=== PATIENT | male | born 1980 | race American Indian/Alaskan Native ===

== ENCOUNTER 2017-03-18 08:45 | Emergency (ER) | payer MEDICAID ==
[2017-03-18 08:55] VITALS: BP 118/79; PULSE 60; RESP 16; TEMP 98.2; O2SAT 100
[2017-03-18 08:56] VITALS: BMI 24.3
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
--- NOTE | 2017-03-20 06:12 | CARD ---
APPROVED REPORT EKG Measurement Heart [id number] <Conclusion> Normal sinus rhythm Normal ECG
== END 2017-03-18 10:03 | disposition home or self-care (01) ==
LOC: H.ER 08:45
DX: J06.9 Acute upper respiratory infection, unspecified (principal)

== ENCOUNTER 2018-08-06 08:40 | Emergency (ER) | payer MEDICAID ==
[2018-08-06 08:52] VITALS: BMI 24.8
[2018-08-06 08:53] VITALS: TEMP 97.7; O2SAT 100
[2018-08-06] MEDS: Sodium Chloride 0.9% 1,000 ML IV SCH ×2 (09:45→11:24)
[2018-08-06 09:48] LABS: BASO # 0.1 K/uL (0.0-0.2); BASO % 1.3 % (0.0-2.0); EOS % 0.7 % (0.0-4.0); HEMOGLOBIN 14.8 g/dL (12.0-18.0); LYMPH # 1.9 K/uL (1.0-4.3); LYMPH % 25.8 % (20.0-40.0); MEAN CELL VOLUME 95.5 fl (80.0-94.0); MEAN CORPUSCULAR HEMOGLOBIN 31.1 pg (27.0-31.0); MEAN CORPUSCULAR HGB CONC 32.6 g/dL (33.0-37.0); MONO # 0.8 K/uL (0.0-0.8); MONO % 10.5 % (0.0-10.0); NEUT # 4.5 K/uL (1.8-7.0); NEUT % 61.7 % (50.0-75.0); RBC 4.75 Mil/uL (4.40-5.90); RED CELL DISTRIBUTION WIDTH 14.1 % (11.5-14.5); WHITE BLOOD COUNT 7.2 K/uL (4.8-10.8)
[2018-08-06 09:59] LABS: ALB/GLOB RATIO 1.1 (1.0-2.1); ALBUMIN 3.9 g/dL (3.5-5.0); ALT/SGPT 75 U/L (21-72); AST/SGOT 58 U/L (17-59); BLOOD UREA NITROGEN 11 mg/dl (9-20); CALCIUM 9.2 mg/dL (8.4-10.2); GFR NON-AFRICAN AMERICAN > 60
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
[2018-08-06 11:24] LABS: BARBITURATES, UR NEGATIVE (NEGATIVE); BENZODIAZEPINES, UR NEGATIVE (NEGATIVE); OPIATES, UR NEGATIVE (NEGATIVE); PHENCYCLIDINE, UR NEGATIVE (NEGATIVE)
[2018-08-06 12:00] VITALS: BP 135/92; PULSE 81; RESP 18
--- NOTE | 2018-08-07 19:08 | CARD ---
APPROVED REPORT Date of service: 08/06/2018 EKG Measurement Heart [id number] <Conclusion> Normal sinus rhythm Normal Electrocardiogram
== END 2018-08-06 12:01 | disposition home or self-care (01) ==
LOC: H.ER 08:40
DX: R42 Dizziness and giddiness (principal); R94.5 Abnormal results of liver function studies; F17.210 Nicotine dependence, cigarettes, uncomplicated
CPT/HCPCS: 80053; 80324; 80345; 80346; 80349; 80353; 80358; 80361; 82948; 83992; 84484; 85025; 93005; 96360; 96361; 99284; J7030